=== PATIENT | male | born 1965 | race Caucasian/White ===

== ENCOUNTER 2019-11-11 07:00 | Emergency (ER) | payer BC ==
[~2019-11-11] VITALS: Ht 167.6 cm; Wt 103.7 kg
[~2019-11-11 07:00] MED LIST: NAPR-996 PO; PRED20TA PO; SUMA4CAR SQ
--- NOTE | 2019-11-11 07:15 | NUR ---
No stroke alert at this time per EDMD Jess, NIH scale completed in case of change in status.
[2019-11-11] MEDS ORDERED: predniSONE 20 mg tablet PO ONE (07:45)
[2019-11-11] MEDS ORDERED: PRED10TA23 PO (07:49)
--- NOTE | 2019-11-11 07:53 | NUR ---
patient to CT
[2019-11-11 09:06] VITALS: BP 124/67
== END 2019-11-11 09:35 | disposition home or self-care (01) ==
LOC: ER 07:01
DX: G51.0 Bell's palsy (principal); G43.909 Migraine, unspecified, not intractable, without status migrainosus; Z98.890 Other specified postprocedural states; Z79.899 Other long term (current) drug therapy
CPT/HCPCS: 70450; 99284; J7512

== ENCOUNTER 2020-10-20 01:57 | Emergency (ER) | payer BC ==
[~2020-10-20] VITALS: Ht 167.6 cm; Wt 108.3 kg
[2020-10-20] MEDS ORDERED: dexamethasone sod phosphate 10mg/ml inj IV STA (02:22)
[2020-10-20] MEDS ORDERED: proCHLORperazine 10 MG/2 ml inj IV ONE (02:25)
[2020-10-20] MEDS ORDERED: SUMAtriptan succ. 6 MG/0.5ml vial SQ ONE (02:25)
[2020-10-20] MEDS ORDERED: normal saline 1000ML IV soln IVB ONE (02:25)
[2020-10-20] MEDS ORDERED: ketorolac tromethamine 15mg/ml inj. IV ONE (02:25)
[2020-10-20] MEDS ORDERED: PROC5TAB56 PO (03:23)
[2020-10-20 03:40] VITALS: BP 114/63
== END 2020-10-20 03:42 | disposition home or self-care (01) ==
LOC: ER 01:58
DX: G43.909 Migraine, unspecified, not intractable, without status migrainosus (principal); Z98.890 Other specified postprocedural states; Z79.899 Other long term (current) drug therapy
CPT/HCPCS: 70450; 96361; 96372; 96374; 96375; 99285; J0780; J1100; J1885; J7030; J3030

== ENCOUNTER 2023-04-22 08:47 | Emergency (ER) | payer BC ==
[~2023-04-22] VITALS: Ht 167.6 cm; Wt 102.3 kg
[~2023-04-22 08:47] MED LIST changes: +PROC5TAB56 PO
[2023-04-22 09:01] VITALS: BP 139/95; PULSE 68; TEMP 97.6; O2SAT 97
[2023-04-22 09:05] LABS: BASOPHILS % (AUTO) 0.3 % (0-1); EOSINOPHILS # (AUTO) 0.1 X10'3 (0-0.9); EOSINOPHILS % (AUTO) 1.2 % (0-6); HEMATOCRIT 43.3 % (42.0-52.0); HEMOGLOBIN 14.5 g/dl (14.0-17.9); LYMPHOCYTES # (AUTO) 0.7 X10'3 (1.1-4.8); LYMPHOCYTES % (AUTO) 11.4 % (21-51); MEAN CORPUSCULAR HEMOGLOBIN 33.2 PG (27.0-31.0); MEAN CORPUSCULAR HGB CONC 33.5 g/dL (33.0-36.5); MEAN CORPUSCULAR VOLUME 99.1 FL (78-98); MEAN PLATELET VOLUME 8.7 FL (7.4-10.4); MONOCYTES # (AUTO) 0.5 X10'3 (0-0.9); MONOCYTES % (AUTO) 7.9 % (2-12); NEUTROPHILS # (AUTO) 4.9 X10'3 (1.8-7.7); NEUTROPHILS % (AUTO) 79.2 % (42-75); PLATELET COUNT 86 X10'3 (140-440); RED BLOOD COUNT 4.37 X10'6 (4.70-6.10); RED CELL DISTRIBUTION WIDTH 13.4 % (11.5-14.5); WHITE BLOOD COUNT 6.2 X10'3 (4.5-11.0)
[2023-04-22 09:32] LABS: ALANINE AMINOTRANSFERASE 29 U/L (12-78); ALBUMIN 3.9 G/DL (3.4-5.0); ALBUMIN/GLOBULIN RATIO 1.1 (1.1-1.5); ALKALINE PHOSPHATASE 67 IU/L (46-116); ANION GAP 8 (8-16); ASPARTATE AMINO TRANSFERASE 15 U/L (10-37); BILIRUBIN,TOTAL 2.1 MG/DL (0.1-1.0); CALCIUM 8.6 MG/DL (8.5-10.1); CHLORIDE 106 MMOL/L (99-107); CREATININE 0.95 MG/DL (0.60-1.10); GLUCOSE 115 MG/DL (70-104); POTASSIUM 4.2 MMOL/L (3.5-5.1); SODIUM 142 MMOL/L (135-145); TOTAL CARBON DIOXIDE 27.8 MMOL/L (24-32); TOTAL PROTEIN 7.4 G/DL (6.4-8.2); eCRCL 77 ML/MIN; eGFR 82 ML/MIN
[2023-04-22 09:38] LABS: BLOOD UREA NITROGEN 12 MG/DL (7-18); BUN/CREATININE RATIO 12.6 (10.0-20.0); PRO BRAIN NATRIURETIC PEPTIDE 49 PG/ML (0-125)
[2023-04-22] MEDS ORDERED: metoclopramide 10mg tablet PO ONE (10:50)
[2023-04-22] MEDS ORDERED: traMADol 50MG tablet PO ONE (10:50)
[2023-04-22] MEDS ORDERED: acetaminophen 325mg tablet PO ONE (10:50)
[2023-04-22 11:46] VITALS: RESP 20
[2023-04-22] MEDS ORDERED: ATEN-169 PO (13:33)
[2023-04-22] MEDS ORDERED: ASPI1TAB6 PO (13:33)
[2023-04-22] MEDS ORDERED: METO5TAB85 PO (13:33)
== END 2023-04-22 13:47 | disposition home or self-care (01) ==
LOC: ER 08:47
DX: G43.909 Migraine, unspecified, not intractable, without status migrainosus (principal); E66.9 Obesity, unspecified; E05.90 Thyrotoxicosis, unspecified without thyrotoxic crisis or storm; Z79.899 Other long term (current) drug therapy
CPT/HCPCS: 70450; 80053; 83880; 84484; 85025; 93005; 99284